=== PATIENT | female | born 1990 | race American Indian/Alaskan Native ===

== ENCOUNTER 2022-05-03 01:56 | Emergency (ER) | payer OTHER, MEDICAID ==
[2022-05-03] MEDS ORDERED: KETOROLAC 30 MG/1 ML INJ IV ONE (02:35)
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
[2022-05-03] MEDS ORDERED: NEOMY 3.5 MG/BACIT 400 UNITS/POLY B 5000 UNITS/GM OINT PACKET TP ONE (04:54)
[2022-05-03 04:56] LABS: HCG Qualitative,Urine Negative (Negative)
[2022-05-03 05:03] VITALS: BP 127/78
== END 2022-05-03 05:05 | disposition home or self-care (01) ==
LOC: ED 01:56
DX: S01.112A Laceration without foreign body of left eyelid and periocular area, initial encounter (principal); J45.909 Unspecified asthma, uncomplicated; F17.200 Nicotine dependence, unspecified, uncomplicated; Z91.09 Other allergy status, other than to drugs and biological substances; Z79.899 Other long term (current) drug therapy; V87.7XXA Person injured in collision between other specified motor vehicles (traffic), initial encounter; Y93.89 Activity, other specified; Y92.488 Other paved roadways as the place of occurrence of the external cause; Y99.8 Other external cause status
CPT/HCPCS: 12011; 81025; 96374; 99284; J1885